=== PATIENT | female | born 1980 | race Hispanic/Latino ===

== ENCOUNTER 2017-11-15 18:01 | Emergency (ER) | payer SELFPAY ==
[~2017-11-15 18:01] MED LIST: CYCLOBENZAPRINE10 M1 PO; IBUPROFEN600 M1 PO
[2017-11-15 18:53] LABS: ABSOLUTE BASOPHIL COUNT 0 /CUMM (0.0-0.2); ABSOLUTE EOSINOPHIL COUNT 0.2 /CUMM (0.0-0.7); ABSOLUTE GRANULOCYTE CT 3.9 /CUMM (1.4-6.5); ABSOLUTE LYMPH COUNT 2.9 /CUMM (1.2-3.4); ABSOLUTE MONOCYTE COUNT 0.6 /CUMM (0.10-0.60); BASOPHIL % 0.5 % (0.0-2.0); EOSINOPHIL % 2.1 % (0-5); GRANULOCYTE % 51.6 % (42.2-75.2); HEMATOCRIT 43.7 % (37-47); MEAN CORPUSCULAR HGB 29.4 PG (27.0-31.0); MEAN CORPUSCULAR HGB CONC 33.7 G/DL (33.0-37.0); MEAN CORPUSCULAR VOLUME 87.1 FL (81.0-99.0); MEAN PLATELET VOLUME 7.5 FL (7.4-10.4); PLATELET COUNT 323 /CUMM (130-400); RBC DISTRIBUTION WIDTH 13.4 % (11.5-14.5); RED BLOOD CELL CT 5.01 /CUMM (4.20-5.40); WHITE BLOOD CELL COUNT 7.6 /CUMM (4.8-10.8)
--- NOTE | 2017-11-15 20:20 | ULTRASOUND REPORT ---
EXAMINATION: ULTRASOUND PELVIC, COMPLETE CLINICAL INFORMATION: Pelvic pain. Bleeding. COMPARISON: None. TECHNIQUE: Transvaginal: Used to better visualize pelvic structures Transabdominal: Not adequate for visualization. Spectral Doppler and color Doppler exam was utilized. LMP: 09/07/2017. Gestational age 7 Weeks 6 days. PRANAV 06/14/2018 FINDINGS: UTERUS: There is a single intrauterine gestation. There is no heartbeat. There is no motion. [place]-rump length 1.1 cm. Gestational age by this measurement is 7 weeks 5 days, PRANAV 06/29/2018. This is discordant with dating by LMP. ADNEXA: Neither the right nor the left ovary is visualized. There is no adnexal abnormality. Cul-de-sac: No Fluid IMPRESSION: Single intrauterine gestation with no motion. No cardiac activity. The pole has a gestational age of 7 weeks 5 days by measurement of crown-rump length 1.1 cm. Findings of demise. This critical result was discussed with Dr. Coburn on 11/15/2017, 8:15 PM and it was ascertained that the content and urgency of the report was understood at the time of direct communication.
[2017-11-15 20:38] VITALS: BP 123/59
--- NOTE | 2017-11-15 21:27 | ED GI/GU/ABDOMINAL COMPLAINT ---
History of Present Illness General Chief Complaint: Female Urogenital Problems Stated Complaint: 8WKS PREG, VAGINAL BLEEDING Source: patient Exam Limitations: no limitations Vital Signs & Intake/Output Vital Signs & Intake/Output Vital Signs Date Time Temp Pulse Resp B/P B/P Pulse O2 O2 Flow FiO2 Mean Ox Delivery Rate 11/150 97.2 64 18 99 Room Air 11/158 64 20 123/59 100 Room Air ED Intake and Output 11/16 0000 11/15 1200 Intake Total 0 Output Total Balance 0 Intake, Oral 0 Patient 165 lb Weight Weight Reported by Patient Measurement Method Allergies Coded Allergies: No Known Allergies (11/15/17) Reconcile Medications No Known Home Medications Triage Note: PT TO ED FOR LOWER ABD CRAMPING WITH VAGINAL BLEEDING. DENIES CLOTS. DENIES DIZZINESS/LIGHTHEADEDNESS. HX OF MISCARRIAGE 7 YEARS AGO. Triage Nurses Notes Reviewed? yes ? y Is pt currently ? No Onset: Abrupt Duration: hour(s):, constant Timing: recent history Radiation: no radiation Activities at Onset: none No Modifying Factors: none HPI: 37-year-old female approximately 9 weeks comes into the emergency room for further evaluation of abdominal cramping and vaginal bleeding. Patient reports that the symptoms began this morning when she woke up and have persisted throughout the day. She denies going through any gross pads. Denies any fever chills vomiting. She has an appointment with CORRUGATOR MACHINE OPERATOR doctor next week. (Brad Dockery) Past History Travel History Traveled to [place] past 21 day No Medical History Any Pertinent Medical History? see below for history Neurological: NONE EENT: NONE Cardiovascular: NONE Respiratory: NONE Gastrointestinal: NONE Hepatic: NONE Renal: NONE Musculoskeletal: NONE Psychiatric: NONE Endocrine: NONE Blood Disorders: NONE Cancer(s): NONE Surgical History Surgical History: none Psychosocial History What is your primary language Italian Tobacco Use: Never used Family History Hx Contributory? No (Brad Dockery) Review of Systems Review of Systems Constitutional: Reports: no symptoms. EENTM: Reports: no symptoms. Respiratory: Reports: no symptoms. Cardiovascular: Reports: no symptoms. GI: Reports: see HPI. Genitourinary: Reports: see HPI. Musculoskeletal: Reports: no symptoms. Skin: Reports: no symptoms. Neurological/Psychological: Reports: no symptoms. Hematologic/Endocrine: Reports: no symptoms. Immunologic/Allergic: Reports: no symptoms. All Other Systems: Reviewed and Negative (Brad Dockery) Physical Exam Physical Exam General Appearance: well developed/nourished, alert, awake Head: atraumatic Eyes: Bilateral: normal appearance. Ears, Nose, Throat, Mouth: hearing grossly normal, moist mucous membrane Neck: normal inspection Respiratory: normal breath sounds, no respiratory distress Gastrointestinal: soft, tenderness (lower abd ) Back: normal inspection Extremities: normal range of motion Neurologic/Psych: awake, alert Skin: intact, normal color Core Measures ACS in differential dx? No Sepsis Present: No Sepsis Focused Exam Completed? No (Brad Dockery) Progress Differential Diagnosis: appendicitis, endometritis, ovarian cyst, ovarian torsion, threatened AB, UTI/pyelo, misscarriage Plan of Care: Orders Procedure Date/time Status HUMAN BETA HCG TITRE 11/15 1832 Complete COMPREHENSIVE METABOLIC PANEL 11/15 1832 Complete CBC WITHOUT DIFFERENTIAL 11/15 1832 Complete RHOGAM WORK-UP 11/15 1832 Complete Laboratory Tests 11/15/17 1841: Anion Gap 11, Estimated GFR > 60, BUN/Creatinine Ratio 18.3, Glucose 108 H, Calcium 10.2, Total Bilirubin 0.3, AST 23, ALT 26, Alkaline Phosphatase 63, Total Protein 7.7, Albumin 4.6, Globulin 3.1, Albumin/Globulin Ratio 1.5, Beta HCG, Quant 3959.3, CBC w Diff NO MAN DIFF REQ, RBC 5.01, MCV 87.1, MCH 29.4, MCHC 33.7, RDW 13.4, MPV 7.5, Gran % 51.6, Lymphocytes % 38.0, Monocytes % 7.8, Eosinophils % 2.1, Basophils % 0.5, Absolute Granulocytes 3.9, Absolute Lymphocytes 2.9, Absolute Monocytes 0.6, Absolute Eosinophils 0.2, Absolute Basophils 0 Diagnostic Imaging: Viewed by Me: Ultrasound. Discussed w/RAD: Ultrasound. Radiology Impression: PATIENT: ISRAEL MAXWELL PRESENT AGE: 37 PATIENT ACCOUNT NO: [id number] : 79 LOCATION: [facility] ORDERING PHYSICIAN: Brad TORIBIO SERVICE DATE: 11/15/17-1832 EXAM TYPE: US - US TRANSVAG EXAMINATION: ULTRASOUND PELVIC, COMPLETE CLINICAL INFORMATION : Pelvic pain. Bleeding. COMPARISON: None. TECHNIQUE: Transvaginal: Used to better visualize pelvic structures Transabdominal: Not adequate for visualization. Spectral Doppler and color Doppler exam was utilized. LMP: 2017. Gestational age 7 Weeks 6 days. PRANAV 06/14/2018 FINDINGS: UTERUS: There is a single intrauterine gestation. There is no heartbeat. There is no motion. [place]-rump length 1.1 cm. Gestational age by this measurement is 7 weeks 5 days, PRANAV 06/29/2018. This is discordant with dating by LMP. ADNEXA: Neither the right nor the left ovary is visualized. There is no adnexal abnormality. Cul -de-sac: No Fluid IMPRESSION: Single intrauterine gestation with no motion. No cardiac activity. The pole has a gestational age of 7 weeks 5 days by measurement of crown-rump length 1.1 cm. Findings of demise. This critical result was discussed with Dr. Coburn on 11/15/2017, 8:15 PM and it was ascertained that the content and urgency of the report was understood at the time of direct communication. DICTATED BY: Leopoldo Lane MD DATE/TIME DICTATED:11/15/172010 FINE UNHAIRER:CELINE DATE/TIME TRANSCRIBED:11/15/172010 CONFIDENTIAL, DO NOT COPY WITHOUT APPROPRIATE AUTHORIZATION. <Electronically signed in Other Vendor System> SIGNED BY: Leopoldo Lane MD 11/15/172019 Initial ED EKG: none Comments: 11/15/2017 10:45:47 PM Patient clinically looks well. Results were discussed with the patient. she had a spontaneous miscarriage. She will need a repeat ultrasound and repeat beta hCG titer. Follow-up with CORRUGATOR MACHINE OPERATOR doctor. She is Rh+. (Brad Dockery) Departure Departure Disposition: HOME OR SELF CARE Condition: Stable Clinical Impression Primary Impression: Incomplete miscarriage Referrals: Patient Has No Primary Care Dr (PCP/Family) Additional Instructions: Follow-up with CORRUGATOR MACHINE OPERATOR doctor within 48 hours for a repeat ultrasound and repeat beta hCG titer. Return if any other concerns worsening. Please go over all results of today's visit with your primary care doctor. Contact your primary care doctor to let them know you were here in the emergency room. There may be nonspecific findings which may not be related to your visit today here in the emergency room but may require further evaluation and chronic monitoring by your primary care doctor. If you had a laceration today the chance of foreign body always remains. You should follow-up with your primary care doctor for recheck in 3-5 days for a wound check. If you had an x-ray done there is a chance that a fracture could have been missed on initial read and you should follow-up with your primary care doctor for repeat x-rays if symptoms persist. If your blood pressure was elevated here in the emergency room please have rechecked by miller primary care doctor within the next 48. If you were prescribed a narcotic here in the emergency room or any type of controlled substances you're not allowed to drive while taking this medication or operate any type of heavy machinery. Narcotics can make you feel lightheaded dizziness nausea and can cause constipation. You may need to milk pickup truck driver a stool softener. Thank you for choosing [facility] emergency room. Please return to the emergency room immediately if you have any other concerns worsening of symptoms. Departure Forms: Customer Survey General Discharge Information Prescriptions: Current Visit Scripts No Known Home Medications (Brad Dockery) PA/FORM TAMPING MACHINE OPERATOR Co-Sign Statement Statement: ED Attending supervision documentation- x I saw and evaluated the patient. I have also reviewed all the pertinent lab results and diagnostic results. I agree with the findings and the plan of care as documented in the PA's/FORM TAMPING MACHINE OPERATOR's documentation. [] I have reviewed the ED Record and agree with the PA's/FORM TAMPING MACHINE OPERATOR's documentation. [] Additions or exceptions (if any) to the PAs/FORM TAMPING MACHINE OPERATOR's note and plan are summarized below: [] (Mesfin PARRISH,Armando)
== END 2017-11-15 21:44 ==
LOC: ERH 18:01
PROVIDERS: Physician Assistant Medical
DX: O03.4 Incomplete spontaneous abortion without complication (principal)
CPT/HCPCS: 36415; 76817